=== PATIENT | female | born 1940 | race Caucasian/White ===

== ENCOUNTER → 2017-03-11 | Outpatient (CLI) | payer MEDICARE ==
[~2017-03-11] MED LIST: CLON2TAB2 PO; HYDR25TA6 PO; LOSA50TA6 PO; METO-95 PO; OMEP-110 PO; PRAV10TA2 PO
== END | disposition home or self-care (01) ==
LOC: CFH 15:50
PROVIDERS: ATTEND Family Medicine
DX: M19.012 Primary osteoarthritis, left shoulder (principal); M25.712 Osteophyte, left shoulder; M75.82 Other shoulder lesions, left shoulder

== ENCOUNTER 2020-04-15 20:13 | Inpatient (IN) | payer MEDICARE ==
[~2020-04-15] VITALS: Ht 154.9 cm; Wt 67.8 kg
[~2020-04-15 20:13] MED LIST changes: -CLON2TAB2 PO; +CLON2TAB9 PO; +LOSA50TA14 PO; -LOSA50TA6 PO
--- NOTE | 2020-04-15 20:34 | NUR ---
PT BROUGHT BACK TO ROOM VIA WC.
--- NOTE | 2020-04-15 20:40 | NUR ---
assumed care of pt. pt resquesting to use BR. pt assisted to BR via WC
--- NOTE | 2020-04-15 20:51 | NUR ---
pt BIB family c/o sternal CP since 1200 today. pt recently returned from [place] 2 days ago where she had another episode of CP and was evaluated there. pt denies SOB, no nausea. pink warm and dry. pt daughter at bedside to translate Frida Millan, daughter age 54, cell phone [phone]
--- NOTE | 2020-04-15 21:32 | NUR ---
Dr Magana has been to bedside for eval. pt resting in position of comfort
[2020-04-15] MEDS ORDERED: ONDANSETRON 2MG/ML, 2ML IVPush ONE (22:00)
[2020-04-15] MEDS ORDERED: MORPHINE SULFATE 4 MG/ML, 1ML IVPush PRN (22:00)
--- NOTE | 2020-04-15 22:05 | NUR ---
Iv attempt unsuccessful. pt and daughter at bedside updated on POC report to Marti SHRESTHA
[2020-04-15] MEDS ORDERED: ONDANSETRON 2MG/ML, 2ML ONE (22:19)
[2020-04-15] MEDS ORDERED: MORPHINE SULFATE 4 MG/ML, 1ML ONE (22:19)
[2020-04-15 22:26] LABS: BASOPHILS % (AUTO) 1 % (0-1); EOSINOPHILS % (AUTO) 2 % (1-7); LYMPHOCYTES % (AUTO) 26 % (22-44); MEAN CORPUSCULAR HEMOGLOBIN 30.3 pg (27.0-34.8); MEAN CORPUSCULAR HGB CONC 33.3 g/dL (32.4-35.8); MEAN PLATELET VOLUME 8.4 fL (7.4-10.4); MONOCYTES % (AUTO) 9 % (2-9); NEUTROPHILS % (AUTO) 62 % (42-75); PLATELET COUNT 142 x10^3/uL (130-400); RED BLOOD COUNT 4.52 x10^6/uL (3.82-5.3); RED CELL DISTRIBUTION WIDTH 13.3 % (9.6-15.2)
[2020-04-15 22:29] LABS: MD NO
--- NOTE | 2020-04-15 22:30 | NUR ---
PT MEDICATED PER ORDERS. WARM BLANKETS PROVIDED. DAUGHTER AT BS.
[2020-04-15 22:35] LABS: ALANINE AMINOTRANSFERASE 21 U/L (12-78); ALBUMIN 3.7 g/dL (3.4-5.0); ANION GAP 7 mmol/L (5-15); CALCIUM 8.6 mg/dL (8.5-10.1); CHLORIDE 110 mmol/L (98-107); CREATININE 0.88 mg/dL (0.55-1.02)
[2020-04-15 22:39] LABS: ALKALINE PHOSPHATASE 71 U/L (45-117); BILIRUBIN,TOTAL 0.4 mg/dL (0.2-1.0); TOTAL PROTEIN 7.6 g/dL (6.4-8.2); TROPONIN I < 0.015 ng/mL (0.000-0.045)
--- NOTE | 2020-04-16 00:12 | NUR ---
ERP WAS IN FOR RECHECK. PT AND DAUGHTER UNDERSTAND PLAN FOR ADMIT. PT STATES SHE FEELS A LITTLE BETTER AFTER PAIN MEDS.
[2020-04-16] MEDS ORDERED: ASPI-647 PO (01:53)
[2020-04-16] MEDS ORDERED: METO25TA35 PO (01:53)
[2020-04-16] MEDS ORDERED: FOLI0.4T2 PO (01:53)
[2020-04-16] MEDS ORDERED: PREG75CA PO (01:53)
[2020-04-16] MEDS ORDERED: LEVO25TA2 PO (01:53)
[2020-04-16] MEDS ORDERED: TELM1TAB28 PO (01:53)
--- NOTE | 2020-04-16 02:06 | NUR ---
Pt not complaining of CP. No complaints. Home req reviewed with pt and daughter at bedside.
--- NOTE | 2020-04-16 02:25 | NUR ---
Break RN: assisted primary RN with care during lunch break. pt resting in position of comfort. Hospitalist at bedside to eval for admission
[2020-04-16] MEDS ORDERED: GUAIFENESIN/DM 200-20MG, 10ML UDC PO PRN (03:00)
[2020-04-16] MEDS ORDERED: morphine SULFATE 10 MG/ML, 1ML IVPush PRN (03:00)
[2020-04-16] MEDS ORDERED: DOCUSATE 100 MG CAPSULE PO PRN (03:00)
[2020-04-16] MEDS ORDERED: ONDANSETRON 2MG/ML, 2ML IVPush PRN (03:00)
[2020-04-16] MEDS ORDERED: ENALAPRILAT 1.25 MG/ML, 2ML IVPush PRN (03:00)
[2020-04-16] MEDS ORDERED: HYDROcodone/APAP 5/325 TABLET PO PRN (03:00)
[2020-04-16] MEDS ORDERED: METHOCARBAMOL 500 MG TABLET PO PRN (03:00)
[2020-04-16] MEDS ORDERED: TEMAZEPAM 15 MG CAPSULE PO PRN (03:00)
--- NOTE | 2020-04-16 03:20 | NUR ---
RN took pt to bathroom with WC. Pt complaining of dizziness with standing. Pt returned to bed. No further complaints. VSS. WCTM
[2020-04-16] MEDS ORDERED: SODIUM CHLORIDE 0.9% 1,000 ML IV SCH (03:30)
[2020-04-16] MEDS ORDERED: ENOXAPARIN 40 MG/0.4 ML ONE (03:57)
[2020-04-16] MEDS: ENOXAPARIN 40 MG/0.4 ML SQ SCH (04:04)
[2020-04-16 04:41] LABS: TROPONIN I < 0.015 ng/mL (0.000-0.045)
[2020-04-16] MEDS ORDERED: LEVOTHYROXINE 25 MCG TABLET PO SCH (06:00)
[2020-04-16] MEDS ORDERED: ACETAMINOPHEN 325 MG TABLET ONE (06:09)
[2020-04-16] MEDS: ACETAMINOPHEN 325 MG TABLET PO PRN (06:09)
[2020-04-16] MEDS ORDERED: ASPIRIN 81 MG TABLET EC ONE (08:56)
[2020-04-16] MEDS ORDERED: METOPROLOL TARTRATE 50 MG TAB ONE (08:56)
[2020-04-16] MEDS ORDERED: OMEPRAZOLE 20 MG CAPSULE.DR ONE (08:56)
[2020-04-16] MEDS ORDERED: FOLIC ACID 0.4 MG PO SCH (09:00)
[2020-04-16] MEDS ORDERED: LOSARTAN 100 MG TAB PO SCH (09:00)
[2020-04-16] MEDS ORDERED: LOSARTAN 50MG TABLET PO SCH (09:00)
[2020-04-16] MEDS: METOPROLOL TARTRATE 50 MG TAB PO SCH ×2 (09:02→22:29)
[2020-04-16] MEDS: LEVOTHYROXINE 50 MCG TABLET PO SCH (09:02)
[2020-04-16] MEDS: OMEPRAZOLE 20 MG CAPSULE.DR PO SCH (09:03)
[2020-04-16] MEDS: LOSARTAN 50MG TABLET PO SCH (09:03)
[2020-04-16] MEDS: ASPIRIN 81 MG TABLET EC PO SCH (09:03)
[2020-04-16 11:16] LABS: TROPONIN I < 0.015 ng/mL (0.000-0.045)
[2020-04-16 13:20] VITALS: BP 182/82
[2020-04-16 14:20] VITALS: BP 162/78
--- NOTE | 2020-04-16 14:51 | NUR ---
BREAK RN NOTE: PT'S VS REASSESSED, NOT MEETING PARMAMETERS FOR PRN HYPERTENSIVE MEDS. PT IS A&O, RESPS EVEN AND UNLABORED, NADN. PT DENIES ANY NEEDS AT THIS TIME. REPORT GIVEN BACK TO PRIMARY RN ELEAZAR.
[2020-04-16] MEDS ORDERED: NS + 20MEQ KCL 1,000 ML IV ONE (17:59)
[2020-04-16 18:43] VITALS: BP 186/81
[2020-04-16] MEDS ORDERED: ENALAPRILAT 1.25 MG/ML, 1ML ONE (18:50)
--- NOTE | 2020-04-16 19:09 | NUR ---
REPORT FROM FADY BUSH. PT CARE ASSUMED.
[2020-04-16 20:51] VITALS: BP 138/84
[2020-04-17 02:01] VITALS: BP 119/76
[2020-04-17] MEDS: OMEPRAZOLE 20 MG CAPSULE.DR PO SCH (05:30)
[2020-04-17] MEDS: LEVOTHYROXINE 50 MCG TABLET PO SCH (05:31)
[2020-04-17] MEDS: ENOXAPARIN 40 MG/0.4 ML SQ SCH (05:32)
[2020-04-17 06:02] LABS: ANION GAP 3 mmol/L (5-15); CALCIUM 8.4 mg/dL (8.5-10.1); CHLORIDE 108 mmol/L (98-107)
[2020-04-17 06:03] LABS: CREATININE 1.04 mg/dL (0.55-1.02)
[2020-04-17 06:04] LABS: BASOPHILS % (AUTO) 1 % (0-1); EOSINOPHILS % (AUTO) 1 % (1-7); LYMPHOCYTES % (AUTO) 22 % (22-44); MEAN CORPUSCULAR HEMOGLOBIN 30.5 pg (27.0-34.8); MEAN CORPUSCULAR HGB CONC 33.4 g/dL (32.4-35.8); MEAN PLATELET VOLUME 8.4 fL (7.4-10.4); MONOCYTES % (AUTO) 9 % (2-9); NEUTROPHILS % (AUTO) 66 % (42-75); PLATELET COUNT 130 x10^3/uL (130-400); RED BLOOD COUNT 4.61 x10^6/uL (3.82-5.3); RED CELL DISTRIBUTION WIDTH 13.6 % (9.6-15.2)
[2020-04-17 06:16] LABS: MD NO
[2020-04-17] MEDS ORDERED: LOSA50TA2 PO (07:22)
[2020-04-17] MEDS ORDERED: HYDR-3343 PO (07:22)
[2020-04-17] MEDS ORDERED: LEVO50TA PO (07:22)
[2020-04-17] MEDS ORDERED: FOLIC ACID 1 MG TABLET PO SCH (09:00)
[2020-04-17 09:32] VITALS: BP 132/84
[2020-04-17] MEDS: METOPROLOL TARTRATE 50 MG TAB PO SCH (10:08)
[2020-04-17] MEDS: ASPIRIN 81 MG TABLET EC PO SCH (10:08)
[2020-04-17] MEDS: LOSARTAN 50MG TABLET PO SCH (10:08)
[2020-04-17 12:13] VITALS: BP 108/69
[2020-04-17] MEDS: ACETAMINOPHEN 325 MG TABLET PO PRN (14:43)
== END 2020-04-17 17:31 | disposition home or self-care (01) | DRG 305 ==
LOC: ED 22:48 → EDIP 04-16 01:26 → 5SO 04-16 20:42
PROVIDERS: ADMIT Internal Medicine; ATTEND Hospitalist
DX: I16.1 Hypertensive emergency (principal); N17.9 Acute kidney failure, unspecified; K27.9 Peptic ulcer, site unspecified, unspecified as acute or chronic, without hemorrhage or perforation; I44.7 Left bundle-branch block, unspecified; E03.9 Hypothyroidism, unspecified; E53.8 Deficiency of other specified B group vitamins; E87.8 Other disorders of electrolyte and fluid balance, not elsewhere classified; I10 Essential (primary) hypertension; Z79.899 Other long term (current) drug therapy; Z83.3 Family history of diabetes mellitus; Z87.11 Personal history of peptic ulcer disease; Z90.710 Acquired absence of both cervix and uterus; Z90.49 Acquired absence of other specified parts of digestive tract
CPT/HCPCS: 36415; 71045; 80048; 80053; 83735; 84100; 84443; 84484; 85025; 93005; 93306; 93356; 96372; 96374; 96375; 99285; G0378; J1650; J2405; J2270; J7030

== ENCOUNTER → 2020-06-18 | Outpatient (CLI) | payer MEDICARE ==
[~2020-06-18] MED LIST changes: +ASPI-647 PO; +FOLI0.4T2 PO; +HYDR-3343 PO; +LEVO25TA2 PO; +LEVO50TA PO; +LOSA50TA2 PO; +METO25TA35 PO; +PREG75CA PO; +REGADENOSON 0.4 MG/5 ML SYRINGE ONE; +TELM1TAB28 PO
== END | disposition home or self-care (01) ==
LOC: CFH 07:47
PROVIDERS: ATTEND Internal Medicine Cardiovascular Disease
DX: I44.7 Left bundle-branch block, unspecified (principal); I10 Essential (primary) hypertension; R07.89 Other chest pain
CPT/HCPCS: 78452; 93017; A9502; J2785